=== PATIENT | female | born 1960 | race Caucasian/White ===

== ENCOUNTER → 2017-05-01 | Outpatient (REF) | payer OTHER ==
[~2017-05-01] MED LIST: /FEXO18TA OR; /PROG10CA OR; CALC0.5C PO; CLOBETASOL TOP; DYAZ37.5 OR; FEMRING; NEUR300C OR; PREG50CA OR; SING10TA31 OR; SYMB80AE IN; VIT D 2000 PO; [UNRECOGNIZED DRUG - OTHER]; ciclopirox TOP; dexilant PO; lidoderm patch TOP; proair inhaler INH
== END ==
LOC: M LAB REF 13:40
PROVIDERS: ATTEND Internal Medicine
DX: N30.01 Acute cystitis with hematuria (principal)

== ENCOUNTER → 2017-05-08 | Outpatient (REF) | payer OTHER | LOC: M LAB REF 11:52 | PROVIDERS: ATTEND Internal Medicine | DX: N30.01 Acute cystitis with hematuria (principal) ==

== ENCOUNTER → 2017-05-16 | Outpatient (REF) | payer OTHER | LOC: M LAB REF 08:12 | PROVIDERS: ATTEND Internal Medicine | DX: D86.85 Sarcoid myocarditis (principal); E78.5 Hyperlipidemia, unspecified ==

== ENCOUNTER → 2017-10-15 | Outpatient (REF) | payer OTHER ==
[2017-10-15 14:05] LABS: ALBUMIN 3.9 GM/DL (3.2-5.2); ALBUMIN/GLOBULIN RATIO 1.18 (1.00-1.93); ALKALINE PHOSPHATASE 210 U/L (45-117); ALT/SGPT 20 U/L (12-78); AST/SGOT 13 U/L (7-37); BILIRUBIN,DIRECT < 0.1 MG/DL (0.0-0.2); BILIRUBIN,TOTAL 0.3 MG/DL (0.2-1.0); TOTAL PROTEIN 7.2 GM/DL (6.4-8.2)
== END ==
LOC: M LAB REF 13:26
DX: M81.8 Other osteoporosis without current pathological fracture (principal)

== ENCOUNTER 2017-10-31 12:16 | Outpatient (RCR) | payer OTHER | END 2017-11-14 | LOC: M CR 12:16 | DX: D86.85 Sarcoid myocarditis (principal) ==

== ENCOUNTER → 2017-11-16 | Outpatient (REF) | payer OTHER ==
[2017-11-16 13:17] LABS: INR 0.93; PROTHROMBIN TIME 12.5 SECONDS (12.4-14.5)
== END ==
LOC: M LAB REF 12:24
DX: Z85.3 Personal history of malignant neoplasm of breast (principal)

== ENCOUNTER → 2019-12-06 | Outpatient (CLI) | payer MEDICARE, OTHER ==
[~2019-12-06] MED LIST changes: -/PROG10CA OR; -CALC0.5C PO; +CALC0.5C14 PO; +PROM1CAP OR
--- NOTE | 2019-12-07 07:23 | ECHO ---
DATE OF PROCEDURE: 12/06/2019 REFERRING PHYSICIAN: Dr. Bhaskar Verdugo REASON FOR THE STUDY: Cardiac sarcoidosis. 2D MEASUREMENTS: IVS: 1.1 cm LV: 5.0 cm LVPW: 1.1 cm LA: 4.2 cm Aorta: 2.8 cm IVC: 1.2 cm DOPPLER MEASUREMENTS: Peak velocity across the aortic valve: 1.7 meters per second Peak velocity across the LVOT: 1.0 meters per second Peak gradient across the aortic valve: 11 mmHg Mean gradient across the aortic valve: 6 mmHg Mitral E: 1.15, Mitral A: 1.22 with a ratio of 0.9 Maximum tricuspid valve velocity; 2.5 meters per second 2D COMMENTS: 1. Normal left ventricular size, wall thickness, and normal global left ventricular systolic function. The estimated left ventricular systolic ejection fraction is 60-65%. The basal portion of the posterior wall seems to be akinetic in limited views. 2. Mildly enlarged left atrium. Normal right atrium and right ventricle. 3. The atrial septum appeared to be normal without evidence of defect or shunt. 4. Trace pericardial effusion noted in limited views. 5. Mildly calcified aortic valve with normal leaflet excursion. Mildly calcified mitral annulus with normal anterior mitral valve leaflet motion. Normal tricuspid valve and pulmonic valve. The proximal pulmonary artery branches also appeared to be normal. 6. The inferior vena cava was normal in size, central venous pressure is most likely normal. 7. Pacemaker/automatic implantable cardioverter defibrillator (AICD) wire artifacts noted in the right heart chambers. DOPPLER: It detects trace aortic regurgitation, trace to mild mitral regurgitation, trace to mild tricuspid regurgitation, and trace pulmonic regurgitation. The calculated pulmonary artery systolic pressure varies between 30-40 mmHg. Abnormal relaxation pattern was noted across the mitral valve leaflets as well as the mitral valve annulus consistent with features of grade 1 left ventricular diastolic dysfunction. IMPRESSION: 1. Normal global left ventricular systolic function. There are some features of grade 1 left ventricular diastolic dysfunction manifested by abnormal relaxation. 2. Aortic valve sclerosis with trace aortic regurgitation and trivial aortic stenosis. 3. Mitral annulus calcification with trace to mild mitral regurgitation, and a mildly enlarged left atrium at 4.2 cm. 4. Trace to mild tricuspid regurgitation with probably mild pulmonary hypertension. 5. Trace pulmonic regurgitation. 6. Trace pericardial effusion. 7. Pacemaker/AICD wire artifacts noted in the right heart chamber. 8. Global longitudinal strain/GLS was calculated at 19.4%. 9. Calculated left ventricular ejection fraction (LVEF) according to the [place] Protocol was reported to be 64%. MTDD
== END ==
LOC: M CARPUL 09:04
PROVIDERS: ATTEND Internal Medicine Pulmonary Disease
DX: D86.85 Sarcoid myocarditis (principal)

== ENCOUNTER → 2020-12-10 | Outpatient (REF) | payer MEDICARE, OTHER ==
[2020-12-10 19:21] LABS: PERCENT SATURATION 16.6 % (13.2-45.0)
== END ==
LOC: M LAB REF 18:26
PROVIDERS: ATTEND Nurse Practitioner Family
DX: D50.9 Iron deficiency anemia, unspecified (principal)

== ENCOUNTER → 2021-04-26 | Outpatient (REF) | payer MEDICARE, OTHER | LOC: M LAB REF 13:00 | PROVIDERS: ATTEND Nurse Practitioner Family | DX: E83.42 Hypomagnesemia (principal) ==

== ENCOUNTER → 2023-05-10 | Outpatient (CLI) | payer MEDICARE, OTHER | LOC: M WUC 10:57 | PROVIDERS: ATTEND Nurse Practitioner Family | DX: R05.1 Acute cough (principal); Z95.0 Presence of cardiac pacemaker ==

== ENCOUNTER → 2023-07-23 | Outpatient (CLI) | payer MEDICARE, OTHER | LOC: M WUC 14:38 | PROVIDERS: ATTEND Nurse Practitioner Family | DX: R05.1 Acute cough (principal) ==